=== PATIENT | male | born 1995 ===

== ENCOUNTER 2017-02-05 20:40 | Emergency (ER) | payer OTHER ==
[~2017-02-05] VITALS: Ht 167.6 cm; Wt 73.8 kg
[2017-02-05 20:45] VITALS: Ht 167.6 cm; Wt 73.8 kg
[2017-02-05] MEDS ORDERED: PROPARACAINE HCL 0.5% OP SOLN 15 ML BTL OP STA (20:53)
[2017-02-05] MEDS ORDERED: CIPROFLOXACIN HCL 0.3% OP SOLN 2.5 ML BTL OP STA (21:02)
--- NOTE | 2017-02-05 21:06 | EMERGENCY ROOM VISIT NOTE ---
ED Visit Note First contact with patient: 20:51 CHIEF COMPLAINT: Eye pain HISTORY OF PRESENT ILLNESS: This 21-year-old patient presents to the emergency department with friend complaining of pain in the right eye past 2 days. There has been a constant moderate pain and irritation, redness and tearing in the eye. There is a mild blurring of vision at times and light bothers the eye. The vision has not been decreased over all. The patient does not wear contacts. The patient rates the pain as irritating and 3/10. The patient has not had previous injuries to this eye. Tetanus shot is up to date. REVIEW OF SYSTEMS: A 6 system review of systems was completed with positives and pertinent negatives listed in the HPI. ALLERGIES: None MEDICATIONS: Vyvanse PMH: ADHD SOCIAL HISTORY: No drug use PHYSICAL EXAM: Vital Signs: Reviewed Nurse's notes, vital signs hypertensive. Visual acuity reviewed from nursing. GENERAL: This is a pleasant male, anxious- appearing, in no acute distress, but who is uncomfortable from the eye problem. Well-developed well-nourished. EYES: The pupils are equal round and reactive to light and accommodation. EOMs are full and without tenderness. There is discharge of clear tears from the right eye which is injected. There is no foreign body visible under the eyelid even after lid eversion. Funduscopic exam reveals no hemorrhages, papilledema, or other abnormalities. No foreign body was seen embedded in the cornea under slit lamp exam. The cornea was clear and no hyphema was seen. Fluorescein uptake was observed with ultraviolet light significant for a corneal abrasion at 7:00, 1 mm. EMERGENCY DEPARTMENT COURSE: I examined the patient. Alcaine 2 drops were placed in the patient's right eye. A slit lamp exam was performed as above. Ciloxan two drops was placed in the patient's right eye. The patient was discharged home in good condition. DIAGNOSIS: Corneal abrasion of the right eye DISCHARGE INSTRUCTIONS AND TREATMENT: Use Ciloxin two drops in right eye every two hours while awake for two days; then two drops every four hours while awake for three days. Ibuprofen(Motrin, Advil) may be used for fever or pain. Use 600mg every six hours as needed. Take with food. Avoid using more than 2400mg in a 24 hour period. Do not use 2400mg per day for more than three consecutive days without physician direction. Prolonged inappropriate use can lead to stomach upset or ulcers. (AND/OR) Acetaminophen(Tylenol) may be used for fever or pain. Use 1000mg every six hours as needed. Avoid using more than 4000mg in a 24 hour period. Follow up with ophthalmology in 2-3 days. Return to the ED for increasing pain or changes in vision. Allergies Coded Allergies: No Known Allergies (Unverified , 01/30/13) Vital Signs Date Time Temp Pulse Resp B/P (MAP) Pulse Ox O2 Delivery O2 Flow Rate FiO2 02/05/17 20:45 36.8 121 20 143/84 97 Room Air Medications Administered Medications (Trade) Dose Ordered Sig/Oswaldo Route Start Time Stop Time Status Last Admin Dose Admin Proparacaine HCl (Alcaine 0.5% Oph Soln) 2 drops NOW STAT OP 02/05/17 20:53 02/05/17 20:54 DC 02/05/17 20:57 2 DROPS Departure Information Referrals No Doctor, Assigned (PCP) Patient Instructions My [facility]
[2017-02-05 21:22] VITALS: BP 139/86; PULSE 95; TEMP 36.8; O2SAT 100
== END 2017-02-05 21:22 | disposition home or self-care (01) ==
LOC: C.EDB 20:43 → C.EDD 21:22
DX: S05.01XA Injury of conjunctiva and corneal abrasion without foreign body, right eye, initial encounter (principal); H57.11 Ocular pain, right eye; X58.XXXA Exposure to other specified factors, initial encounter

== ENCOUNTER 2017-04-25 23:20 | Emergency (ER) | payer OTHER ==
[~2017-04-25] VITALS: Ht 167.6 cm; Wt 77.9 kg
[2017-04-25 23:39] VITALS: TEMP 37.4; Ht 167.6 cm; Wt 77.9 kg
[2017-04-26] MEDS ORDERED: AMOX875T3 PO
[2017-04-26] MEDS ORDERED: IBUPROFEN 200 MG TAB PO STA (00:02)
[2017-04-26] MEDS ORDERED: AMOXICILLIN 500 MG CAP PO STA (00:02)
--- NOTE | 2017-04-26 00:02 | EMERGENCY ROOM VISIT NOTE ---
History First contact with patient: 23:45 Chief Complaint: SORETHROAT Stated Complaint: HEADACHE, SORE THROAT History of Present Illness The patient is a 21 year old male who presents to the Emergency Room with complaints of a severe sore throat that started 2 days ago. The patient has having significant difficulty swallowing. He did not take his temperature at home, but he complains of a headache and body aches. He has been trying tea with honey with no relief. He is up-to-date on his vaccines. He denies any sick contacts. He denies any cough. Review of Systems 6 system review negative. Please see pertinent positives in the history of present illness section. Past Medical/Surgical History Otherwise healthy Social History Smoking Status: Current Every Day Smoker Housing Status: lives with family Occupation Status: student Physical Exam Vital Signs Date Time Temp Pulse Resp B/P (MAP) Pulse Ox O2 Delivery O2 Flow Rate FiO2 04/25/17 23:39 37.4 97 18 123/69 100 Room Air 04/25/17 23:39 100 Room Air Physical Exam VITALS: Vitals are noted on the nurse's note and reviewed by myself. Vital signs stable. GENERAL: 21-year-old male, in no acute distress, nondiaphoretic, well-developed well-nourished. SKIN: The skin was without rashes, erythema, edema, or bruising. HEAD: Normocephalic atraumatic. EARS: External auditory canals clear, tympanic membranes pearly petit without erythema or effusion bilaterally. EYES:Conjunctivae without injection, sclerae without icterus. Extraocular movements intact. MOUTH: Mucous membranes moist. Tonsils are moderately enlarged, erythematous with white exudate bilaterally. Airway is patent. Uvula is midline. No involvement of the soft palate. NECK: Supple without nuchal rigidity. Lymphadenopathy in the anterior cervical chain bilaterally.. Cervical spine is nontender. No JVD. HEART: Regular rate and rhythm without murmurs gallops or rubs. LUNGS: Clear to auscultation bilaterally without wheezes, rales or rhonchi. No accessory muscle use. MUSCULOSKELETAL: No muscle atrophy, erythema, or edema noted. Strength 5/5 throughout. NEURO: Patient was alert and oriented to person place and time. Normal sensation to touch. No focal neurological deficits. Medical Decision & Procedures ED Course The patient was seen and examined A strep culture was obtained He was medicated with amoxicillin and ibuprofen Discharge instructions were reviewed, and he was discharged in good condition Medical Decision Differential diagnosis: Bacterial versus viral tonsillitis, peritonsillar abscess This patient is a 21-year-old male that presents to the emergency department with a main complaint of sore throat, headache and body aches. His tonsils were fairly impressive on exam. There were no signs of a peritonsillar abscess. Airway was patent. Given his complaint and fever, I believe he likely is going to test positive for strep. He will be treated with a ten-day course of amoxicillin. He was encouraged to follow-up with his primary care physician, and agrees to return here if any new, worsening or concerning symptoms. This chart was completed in part utilizing [employer] Speech Voice Recognition software. Attempts were made to minimize the grammatical errors, random word insertions, pronoun errors and incomplete sentences. Any formal questions or concerns about the content, text or information contained within the body of this dictation should be directly addressed to the provider for clarification. Impression Primary Impression: Acute bacterial tonsillitis Departure Information Dispostion Home / Self-Care Condition GOOD Prescriptions Amoxicillin (AMOXIL) 875 Mg Tab 1 TAB PO BID for 10 Days, #20 TAB Prov: Joy Ace PA-C 04/26/17 Referrals No Doctor, Assigned (PCP) Patient Instructions ED Tonsillitis, [facility] Additional Instructions You were evaluated in the emergency department for a sore throat. This is likely due to tonsillitis. Please gargle 3 times daily with salt water Cepacol [id number] lozenges for throat pain. Please take as directed. Please take the entire course of antibiotics Take Tylenol and ibuprofen for pain and fever Ibuprofen 800 mg and/or Tylenol 1000 mg every 8 hours. You may also alternate these medications for more effective pain relief: Ibuprofen --4 HRS--> Tylenol --4 HRS--> ibuprofen --4 HRS--> Tylenol .... Please follow-up with her primary care physician within the next week for recheck Do not hesitate to return to the emergency department with any new, worsening or concerning symptoms
[2017-04-26] MEDS ORDERED: AMOXICILLIN 250 MG CAP PO ONE (00:22)
[2017-04-26 00:32] VITALS: BP 116/80; PULSE 99; O2SAT 99
== END 2017-04-26 00:33 | disposition home or self-care (01) ==
LOC: C.EDB 23:21 → C.EDD 04-26 00:33
DX: J03.90 Acute tonsillitis, unspecified (principal); F17.200 Nicotine dependence, unspecified, uncomplicated